=== PATIENT | female | born 1975 | race American Indian/Alaskan Native ===

== ENCOUNTER 2018-01-04 18:28 | Emergency (ER) | payer MEDICAID ==
[2018-01-04 18:28] VITALS: BMI 36.6
[2018-01-04 18:43] VITALS: RESP 18
--- NOTE | 2018-01-04 19:38 | C.PDOC ---
History Of Present Illness 42 yo female come in for evaluation of left foot pain gradually developed for past 3 days after sustained twisting injury. Pt reports, " was jumping rope, twisted my Left ankle". Pain is localized over dorsal aspect Left foot, worse with ambulation, noted swelling since yesterday. Otherwise, pt denies complete fall, denies deformity, weakness, sensory or vascular deficit to left foot. Ambulate to ED for evaluation, not in any apparent distress. Pt denies previous hx of left foot injury. Time Seen by Provider: 01/04/18 19:14 Chief Complaint (Nursing): Lower Extremity Problem/Injury History Per: Patient Onset/Duration Of Symptoms: Gradual Past Medical History Reviewed: Historical Data, Nursing Documentation, Vital Signs Vital Signs: Last Vital Signs Temp 98.7 F 01/04/18 18:40 Pulse 88 01/04/18 18:40 Resp 18 01/04/18 18:40 BP 132/87 01/04/18 18:40 Pulse Ox 99 01/04/18 20:56 - Medical History PMH: No Chronic Diseases - Verified Identity Pass Procedures INJECT/INFUSE NEC (09/16/14) Family History: States: No Known Family Hx - Social History Hx Tobacco Use: No Hx Alcohol Use: Yes Hx Substance Use: No - Immunization History Hx Tetanus Toxoid Vaccination: No Hx Influenza Vaccination: No Hx Pneumococcal Vaccination: No Review Of Systems Except As Marked, All Systems Reviewed And Found Negative. Constitutional: Negative for: Fever, Chills Eyes: Negative for: Vision Change Genitourinary: Negative for: Incontinence Musculoskeletal: Positive for: Foot Pain Skin: Negative for: Rash, Bruising Neurological: Negative for: Weakness, Numbness Physical Exam - Physical Exam Appears: Well, Non-toxic, No Acute Distress Skin: Normal Color, Warm, Dry, No Rash, No Ecchymosis Eye(s): bilateral: PERRL Extremity: Normal ROM (Left foot/ankle and knee), Tenderness (dorsal aspect left foot over 5th MCB, no palpable deformity, no ecchymoses.), No Calf Tenderness, Capillary Refill (less than 2sec to left foot), No Deformity, Swelling (diffuse left foot edema, dorsal aspect.) Neurological/Psych: Oriented x3, Normal Speech, Normal Motor, Normal Sensation, Normal Reflexes ED Course And Treatment O2 Sat by Pulse Oximetry: 99 - Other Rad Left foot X-Ray: Interpreted by Me, Viewed By Me Interpretation: (+)5th MTB fx Progress Note: Case discussed with POdiatry on-call. Follow up with on Sunday recommend at clinic. On re-eval, pt is afebrile, hemodynamicaly stable. Left foot: exam c/w foot sprain, no defomrity, no neurovascular deficits. Imaging (+) Brewer fx. Splint applied to Left foot, crutches with instruction provided. Pt advised adn ref. to f/u with Welding [employer] [facility] in 3 days for re-eval and further tx Orthopedic Time Performed: 20:24 Time Out: Side verified, Site verified, Patient ID confirmed Procedure: Splint Type: Posterior Location: Left, Leg Consent obtained: Verbal Performed by: Mid-level Provider Diagnosis: Fracture Type: Closed Location: Left Bone: 5th, Metatarsal Disposition Counseled Patient/Family Regarding: Studies Performed, Diagnosis, Need For Followup, Rx Given - Disposition Referrals: [facility] at [facility] [place] [Outside] Gunner Gonzalez DPM [Medical Doctor] - Disposition: HOME/ ROUTINE Disposition Time: 20:25 Condition: STABLE Additional Instructions: none-weight bearing for 2 weeks take pain medication as prescribed Follow up with [facility] ( [facility]) on SUNDAY from noon-4pm for further evaluation and treatment. Return to ED if any worsening or new changes. Prescriptions: traMADol [Ultram] 50 mg PO TID #10 tab Forms: [employer] (Romanian) - Clinical Impression Clinical Impression: Brewer fracture
[2018-01-04 23:07] VITALS: BP 130/80; PULSE 78; TEMP 98; O2SAT 100
--- NOTE | 2018-01-04 23:14 | CP.PCM.CON ---
History of Present Illness - History of Present Illness History of Present Illness: 42F with no known PMHx seen in ED complaining of left foot pain after she twisted her ankle while jump roping two days ago. Patient states that her pain is isolated to the outside of her left foot at the level of the midfoot. She states that she has been walking on the foot with some pain and discomfort but overall rates the pain a 5/10. She denies any tingling or numbness to the foot at this time. She has been taking ibuprofen for the last two days. She is AAQ x 3 and NAD at time of visit. Denies any further pedal complaints at this time. Denies any recent N/V/F/C/CP/SOB/D/posterior calf pain when squeezed. Patient denies any current medications, denies allergies, denies any past surgical history. She admits to smoking marijuana and Black and Mild's. She smokes a pack of Black and Milds every two days. Social drinker. 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 Review of Systems - Review of Systems Review of Systems: ROS as per HPI Past Patient History - Infectious Disease Hx of Infectious Diseases: None - Tetanus Immunizations Tetanus Immunization: Unknown - Past Social History Smoking Status: Current Some Days Smoker - PSYCHIATRIC Hx Substance Use: No - SURGICAL HISTORY Hx Tubal Ligation: Yes - ANESTHESIA Hx Anesthesia: Yes Hx Anesthesia Reactions: No Hx Malignant Hyperthermia: No Meds Home Medications: Home Medication List Medication Instructions Recorded Confirmed Type traMADol [Ultram] 50 mg PO TID #10 tab 01/04/18 Rx Allergies/Adverse Reactions: Allergies Allergy/AdvReac Type Severity Reaction Status Date / Time No Known Allergies Allergy Verified 09/16/14 11:00 Physical Exam - Constitutional Appears: Well, Non-toxic, No Acute Distress - Head Exam Head Exam: ATRAUMATIC, NORMOCEPHALIC - Respiratory Exam Respiratory Exam: NORMAL BREATHING PATTERN. absent: Respiratory Distress - Extremities Exam Additional comments: LLE focused exam Vasc: DP/PT pulses fully palpable 2/4 b/l. Skin temperature warm to warm from proximal to distal. CFT < 3 seconds to all digits b/l. Moderate edema noted to left lateral midfoot at level of fifth metatarsal Neuro: Epicritic and protective sensation grossly intact b/l Derm: No open lesions, wounds, maceration, xerosis, abnormal pigmentation or abnormal growths noted b/l MSK: POP to base of fifth metatarsal. Pain with inversion and eversion of STJ. No POP to digits, lis franc joint/ligament, medial or lateral malleoli, peroneal tendons, navicular tuberosity, posterior tibial tendon or achilles tendon - Back Exam Additional comments: LLE focused exam: Vasc: DP/PT pulses - Neurological Exam Neurological exam: Alert, Oriented x3 - Psychiatric Exam Psychiatric exam: Normal Affect, Normal Mood Results - Vital Signs Recent Vital Signs: Last Vital Signs Temp 98 F 01/04/18 23:05 Pulse 78 01/04/18 23:05 Resp 18 01/04/18 23:05 BP 130/80 01/04/18 23:05 Pulse Ox 100 01/04/18 23:05 Assessment & Plan - Assessment and Plan (Free Text) Assessment: 42F seen in ED for Brewer fracture of left foot. Pt to follow up in Dr Gonzalez's [facility] [place] clinic on Sunday Plan: Patient seen and evaluated Plan discussed with attending Dr. Gonzalez Charts, labs, vitals reviewed L foot and ankle xrays reviewed: Acute Brewer fracture of left fifth metatarsal base appreciated. No other signs of fracture noted Patient placed in posterior splint and given crutches Patient informed to practice RICE therapy at home and remain NWB while keeping dressing C/D/I Patient to follow up with Dr. Gonzalez in her [facility] on Sunday - Date & Time Date: 01/04/18 Time: 22:30
--- NOTE | 2018-01-05 12:05 | RAD ---
PROCEDURE: Left Foot Radiographs. HISTORY: injury COMPARISON: None. FINDINGS: BONES: There is a nondisplaced fracture traversing the base 5th metatarsal. JOINTS: Normal. SOFT TISSUES: Normal. OTHER FINDINGS: None. IMPRESSION: Nondisplaced fracture traversing base 5th metatarsal
--- NOTE | 2018-01-05 12:06 | RAD ---
PROCEDURE: Left Ankle Radiographs. HISTORY: Injury COMPARISON: None FINDINGS: BONES: Normal. No fracture. . Tiny plantar and posterior calcaneal enthesophytes are present. The JOINTS: Normal. No osteoarthritis. Ankle mortise maintained. Talar dome intact SOFT TISSUES: Mild circumferential surrounding soft tissue swelling OTHER FINDINGS: None. IMPRESSION: No evidence of acute displaced fracture nor dislocation. Mild surrounding circumferential cerebral soft tissue swelling
== END 2018-01-04 23:08 | disposition home or self-care (01) ==
LOC: C.ER 18:28
DX: S92.355A Nondisplaced fracture of fifth metatarsal bone, left foot, initial encounter for closed fracture (principal); X50.1XXA Overexertion from prolonged static or awkward postures, initial encounter; Y93.56 Activity, jumping rope

== ENCOUNTER 2018-02-11 09:54 | Day surgery (SDC) | payer MEDICAID ==
[2018-02-07 10:53] VITALS: BMI 38.5
[2018-02-11] MEDS ORDERED: Midazolam 2 MG/2 ML VIAL ONE (12:58)
[2018-02-11] MEDS ORDERED: Propofol 10 mg/ml Inj (20 ML) ONE (12:59)
[2018-02-11] MEDS ORDERED: Bupivacaine HCl 0.25% PF (30 ml) Inj ONE ×2 (13:10→16:04)
[2018-02-11] MEDS ORDERED: Lidocaine 2% MPF (5 ml) Inj ONE (13:10)
[2018-02-11] MEDS ORDERED: ceFAZolin 1 gm FROZEN Premix 0 GM/0 ML ML IVPB ONE (13:11)
[2018-02-11] MEDS ORDERED: Lactated Ringer's 1,000 ML IV ONE ×2 (13:30→16:10)
[2018-02-11] MEDS ORDERED: ceFAZolin IV 2 gm in Dextrose 2 GM/50 ML BAG IVPB ONE (13:45)
[2018-02-11] MEDS ORDERED: Morphine 4 MG/ML VIAL ONE (15:01)
[2018-02-11] MEDS ORDERED: Oxycodone/Acetaminophen 5/325 mg Tab PO PRN ×2 (15:52)
--- NOTE | 2018-02-11 15:59 | PCM.SURG1 ---
Surgeon's Initial Post Op Note - Surgeon's Notes Surgeon: Dr. Payton Gonzalez DPM Buckle Strap Drum Operator: Dr. Rebeca Bennett DPM PGY-2, Dr. Florian Hernandez DPM PGY-1 Type of Anesthesia: General LMA, Local Anesthesia Administered By: Dr. Timmy MCFARLANE Pre-Operative Diagnosis: Left foot Brewer fracture Operative Findings: See dictation. M: 3-0 vicryl, 4-0 nylon; Synthes hook plate. I: 20 cc of 1:1 1% lidocaine plain:0.5% marcaine plain; 3.5 cc of bone marrow aspirate; 4 cc of 0.5% marcaine plain. T: 60 min at 350 mmHG Post-Operative Diagnosis: Same Operation Performed: Open reduction and internal fixation of left foot 5th metatarsal base fracture with application of bone marrow aspirate Specimen/Specimens Removed: none Estimated Blood Loss: EBL {In ML}: 20 Blood Products Given: N/A Drains Used: No Drains Post-Op Condition: Good Date of Surgery/Procedure: 02/11/18 Time of Surgery/Procedure: 16:00
[2018-02-11] MEDS: HYDROmorphone 0.5 mg/0.5 ml ISec IVP PRN ×4 (16:02→16:48)
--- NOTE | 2018-02-11 16:12 | RAD ---
PROCEDURE: Intraoperative Fluoroscopy. HISTORY: Left foot 5th metatarsal fracture FINDINGS: Fluoroscopic assistance was provided for left foot fracture repair. Please refer to the operative report from [facility].
--- NOTE | 2018-02-11 17:26 | PCM.ANESB2 ---
Popliteal Nerve Block - Popliteal Nerve Block Date of Procedure: 02/11/18 Anesthesiologist: Lake Pre-Procedure Diagnosis: Left 5th metatarsal fracture Post-Procedure Diagnosis: Left 5th metatarsal fracture Procedure Performed: Popliteal Nerve Block Left - Procedure Popliteal Nerve Block: This procedure was explained to the patient that it is for post-operative pain management. Consent was obtained after a thorough discussion with the patient regarding the benefits and possible complications of local anesthetic block of the sciatic nerve at the popliteal level. The patient was brought to the operating room and standard monitors are applied. Time-out was held with the circulating nurse to confirm the correct surgery and the appropriate block. After applying oxygen by nasal cannula and administering IV Sedation, patient's operative leg was gently raised and supported and the groove in between the biceps femoris and vastus lateralis muscles was carefully palpated. The skin approximately 8cm above the popliteal crease was then marked. The ultrasound transducer was then applied to the posterior thigh approximately 8cm above the popliteal crease in the transverse plane and the sciatic nerve before its division was visualized lateral to the popliteal artery and in between the bicep femoris and semimembranosus/semitendinosus muscles. After identification, the lateral portion of the thigh was prepped with Betadine solution three times and Lidocaine 1% was injected subcutaneously for topical anesthesia. At this point, a # 21 gauge Echobright insulated 4 inch needle was inserted into pre-marked area and advanced in a perpendicular direction. The needle was inserted above the ultrasound transducer in-plane towards the sciatic nerve in a [id number] direction. Needle advancement was performed carefully under direct ultrasound visualization. . After repeated negative aspiration, _20_cc of _0.25__ % bupivicaine__ was injected. Under ultrasound guidance the local anesthetics were observed surrounding sciatic nerve . The needle was removed intact and sterile dressing was applied. The patient tolerated the popliteal nerve block well with stable vital signs and was subsequently prepared for the surgery.
[2018-02-11 18:55] VITALS: RESP 18; TEMP 97.2; O2SAT 96
[2018-02-11 18:57] VITALS: BP 139/77; PULSE 57
--- NOTE | 2018-02-12 12:32 | RAD ---
PROCEDURE: Left Foot Radiographs. HISTORY: s/p left foot surgery COMPARISON: Left foot radiographs 02/04/2018. FINDINGS: BONES: Patient is now seen to be status post ORIF with compression plate in multiple screws reducing the proximal 5th metatarsal fracture left foot. Cast obscures fine bony detail. Remainder the examination is stable in and unremarkable. JOINTS: Normal. SOFT TISSUES: Normal. OTHER FINDINGS: None. IMPRESSION: Status post ORIF left 5th metatarsal bone.
--- NOTE | 2018-02-18 07:16 | OP ---
PROCEDURE DATE: 02/11/2018 PRIMARY SURGEON: Payton Gonzalez DPM ASSISTANTS: Rebeca Bennett DPM, PGY-2 and Florian Hernandez DPM, PGY-1. ANESTHESIA TYPE: General LMA with regional popliteal block. ANESTHESIOLOGIST: Tyler Schulz MD PREOPERATIVE DIAGNOSIS: Left foot fifth metatarsal Brewer fracture slight displacement POSTOPERATIVE DIAGNOSIS: Left foot fifth metatarsal Brewer fracture slight displacement PROCEDURES PERFORMED: 1. Left foot open reduction and internal fixation of fifth metatarsal fracture. 2. 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 3. Fluoroscopy. INDICATIONS: The patient is a 42-year-old female with the above-stated diagnosis. The patient has failed outpatient conservative treatment options due to forced ambulation against conservative management protocol due to emergent life event of helping family member in sickle cell crises resulting in fracture, nonunion. As such, the patient is now in need of surgical intervention. The patient signed the surgical consent after careful explanation of risks, benefits, complications, and potential alternatives to the proposed surgical procedure. No guarantees were either given or implied. All the patient's questions were answered to her satisfaction. PREPARATION: The patient's n.p.o. status was confirmed prior to bringing the patient to the operating room. The patient was brought into the operating room and placed on the operating room table in a supine position with an ipsilateral hip bump placed inferior to the operating room table cushion. Upon completion of administered regional block and upon confirmation of general anesthesia being taking effect, the patient received a pneumatic tourniquet at level of the left thigh which was well padded and set to 350 mmHg to be inflated once the procedure began. With anesthesia confirmed, the patient's left foot was then prepped and draped in the usual sterile manner. Tourniquet was inflated and the procedure began. PROCEDURE #1: Left foot fifth metatarsal open reduction with internal fixation. Attention was then directed to the dorsolateral aspect of the patient's left foot where an approximately 4-cm linear longitudinal incision was made superior to the abductor digiti minimi muscle belly using #16-blade. This incision extended from proximal below one third of the fifth metatarsal and terminating proximal to the styloid process attachment of the peroneus brevis muscle. The incision was extended down through subcutaneous tissue layers with care being taken to identify, avoid, and retract all vital neurovascular structures. All bleeders were cauterized and ligated as needed and encountered. At this time, abductor digiti minimi muscle belly was evaluated and retracted inferiorly. Peroneus brevis attachments were noted and identified. At this time, a periosteal incision was made in the dorsolateral aspect of the fifth metatarsal bone, full length of the incision. Periosteal structures were then retracted medially and laterally, thus fully exposing base of fifth metatarsal bone. At this time, noted stepoff inferior displacement was appreciated. At this time, fluoroscopic guidance was introduced to evaluate fracture site under fluoroscopic triangulation. Radiolucency of fifth metatarsal base fracture was appreciated. Upon triangulation with instruments, it was noted that unstable arthrosis was appreciated in line with the nonunion site. At this time with minimal sharp dissection, excess arthritic overgrowth was excised from the fracture site. At this time, 0.045-inch K-wire was introduced and parallel inline drill was drilled across the fracture site to osseous activity. At this time, using AO reduction techniques, fifth metatarsal fracture was reapproximated and temporarily fixated. Surgical site was then flushed with copious amount of sterile saline. At this time with adequate amount of reduction in place and arthrosis relieved, Synthes ulnar hook plate was introduced and temporarily fixated using K-wires. At this time, a series of Synthes 2.0 x 10, 12, 14 and 18-mm screws were driven across the plates with a total of four cortices fixated proximally and fifth metatarsal cortices fixated distally. The plate was adhered to lateral margin of fifth metatarsal anchored into the styloid process superior inferior to the margins of the peroneus brevis attachment. At this time, it was noted that there was no soft tissue impingement of tendinous structures or muscle bellies at this time. Surgical site was then flushed with copious amounts of sterile saline. Periosteal structures were reapproximated using 3-0 Vicryl. Subcutaneous tissue was reapproximated using 4-0 Vicryl. Skin was reapproximated using 4-0 nylon in a simple suture type fashion. At this time, tourniquet was deflated and would not be inflated for the remainder of the procedure. At this time, 10 minutes of vascular perfusion was allowed to maximize oxygenated blood flow for subsequent procedure of bone marrow aspiration harvest. PROCEDURE #2: Left foot calcaneal bone marrow aspiration harvest and infiltration into nonunion site. Attention was then directed to the lateral aspect of the patient's left foot where under fluoroscopic guidance, calcaneal neutral triangle was identified. At this time using bone marrow aspirate, trocar and cannula were driven percutaneously to soft tissue. Upon encounter of lateral calcaneal cortical wall, trocar and cannula were tapped across the cortical wall and admitted into calcaneal medullary bone. At this time, trocar was removed and 50 mL syringe was attached to the intraosseous cannula. Approximately 30 mL of bone marrow aspirate were harvested which was then passed off to be centrifuged with an anticoagulant. Once centrifuge was completed, it yielded approximately 5 mL of bone marrow aspirate concentrate. This bone marrow aspirate concentrate was then placed in a syringe with IO cannula still in place. The patient received approximately 4 mL of 5% Marcaine plain in an intraosseous blockade fashion. At this time, cannula was removed and percutaneous site was reapproximated using 4-0 nylon. Bone marrow aspirate concentration was then introduced percutaneously across distal metatarsal nonunion site in totality with equal distribution subperiosteally. Surgical site was then dressed with Betadine-soaked 4 x 4 gauze, Kerlix, Renita and Coban. The patient was placed in AO type posterior splint and is to be nonweightbearing. POSTOPERATIVE CONDITION: The patient tolerated the anesthesia and procedure well and was escorted to the recovery room with vital signs stable and neurovascular status intact to the left foot. The patient had no complaints or complications. The patient will follow up on an outpatient basis. Rebeca Bennett DPM Payton Gonzalez DPM FEDE
== END 2018-02-11 19:50 | disposition home or self-care (01) ==
LOC: C.SDS 09:54
PROVIDERS: ATTEND Podiatrist Foot & Ankle Surgery
DX: S92.352A Displaced fracture of fifth metatarsal bone, left foot, initial encounter for closed fracture (principal); F17.210 Nicotine dependence, cigarettes, uncomplicated; F12.90 Cannabis use, unspecified, uncomplicated; E66.9 Obesity, unspecified; Z68.38 Body mass index [BMI] 38.0-38.9, adult
CPT/HCPCS: 20999; 28485; 73620; C1713; J0690; J1170; J2250; J2270; J2704; J3010; J7120